=== PATIENT | female | born 1945 | race Caucasian/White ===

== ENCOUNTER 2017-01-06 14:20 | Outpatient (CLI) | payer OTHER, MEDICARE ==
[~2017-01-06 14:20] MED LIST: ASA81 PO; CELE200C PO; CLOP75TA2 PO; NIAC1000 PO; PROP10TA10 PO; SIMV20TA2 PO; [UNRECOGNIZED DRUG - CODE] PO
== END 2017-01-06 19:48 | disposition home or self-care (01) ==
LOC: SMA 14:20
PROVIDERS: ATTEND Specialist
DX: Z12.31 Encounter for screening mammogram for malignant neoplasm of breast (principal)
CPT/HCPCS: G0202

== ENCOUNTER 2017-02-18 19:15 | Emergency (ER) | payer OTHER, MEDICARE ==
[~2017-02-18] VITALS: Ht 165.1 cm; Wt 80.7 kg
[2017-02-18 19:25] VITALS: BP_SYST 153
[2017-02-18] MEDS ORDERED: BACITRACIN 1 GM OINT TP ONE (22:15)
[2017-02-18] MEDS ORDERED: DIPH-TET-PERTUS Vaccine 0.5 ML VIAL (ADACEL) IM ONE (22:15)
[2017-02-18] MEDS ORDERED: LIDOCAINE 1% 10 MG/ML, 20 ML MDV IJ ONE (22:15)
[2017-02-18] MEDS ORDERED: CIPROFLOXACIN HCL 500 MG TABLET PO ONE (23:15)
[2017-02-18] MEDS ORDERED: CLINDAMYCIN HCL 150 MG CAPSULE PO ONE (23:15)
[2017-02-18 23:44] VITALS: BP_SYST 138
== END 2017-02-18 23:44 | disposition home or self-care (01) ==
LOC: SED 19:15
DX: S61.512A Laceration without foreign body of left wrist, initial encounter (principal); S51.051A Open bite, right elbow, initial encounter; Z88.0 Allergy status to penicillin; Z79.82 Long term (current) use of aspirin; Z79.899 Other long term (current) drug therapy; W54.0XXA Bitten by dog, initial encounter; Y93.01 Activity, walking, marching and hiking; Y92.098 Other place in other non-institutional residence as the place of occurrence of the external cause; Y99.8 Other external cause status
CPT/HCPCS: 12002; 73110; 90471; 90715; 99284; J2001

== ENCOUNTER 2018-12-04 12:45 | Outpatient (CLI) | payer OTHER, MEDICARE | END 2018-12-04 21:06 | disposition home or self-care (01) | LOC: SMA 12:45 | DX: Z12.31 Encounter for screening mammogram for malignant neoplasm of breast (principal) | CPT/HCPCS: 77067 ==

== ENCOUNTER 2020-04-07 12:16 | Outpatient (CLI) | payer OTHER, MEDICARE | END 2020-04-07 20:30 | disposition home or self-care (01) | LOC: SMA 12:16 | PROVIDERS: ATTEND Family Medicine | DX: Z12.31 Encounter for screening mammogram for malignant neoplasm of breast (principal) | CPT/HCPCS: 77067 ==

== ENCOUNTER 2020-09-07 17:57 | Emergency (ER) | payer OTHER, MEDICARE ==
[~2020-09-07] VITALS: Ht 165.1 cm; Wt 81.6 kg
[2020-09-07 18:03] VITALS: BP_SYST 157
--- NOTE | 2020-09-07 18:20 | NUR ---
RECEIVED AND IN ROOM, CALM, ALERT, RESP UNLABORED, SKIN WARM AND DRY. NO DISTRESS. STEADY GAIT, HERE FOR C/O ABD PAIN LLQ. DENIES FEVER/CHILLS, N,V DENIES CP/SOB
--- NOTE | 2020-09-07 18:29 | NUR ---
DR MATTSON IN TO ASSESS
[2020-09-07 18:43] LABS: BILIRUBIN,URINE NEGATIVE (NEGATIVE); BLOOD, URINE NEGATIVE (NEGATIVE); CLARITY/URINE CLEAR (CLEAR); COLOR,URINE YELLOW (YELLOW); GLUCOSE,URINE NEGATIVE (NEGATIVE); KETONES,URINE NEGATIVE (NEGATIVE); LEUKOCYTE ESTERASE ,URINE NEGATIVE (NEGATIVE); NITRITE, URINE NEGATIVE (NEGATIVE); PROTEIN URINE NEGATIVE (NEGATIVE); UROBILINOGEN,URINE 0.2 (0.2-1.0)
[2020-09-07 18:54] LABS: BASOPHILS % (AUTO) 0.3 % (0.0-2.0); EOSINOPHILS # (AUTO) 0.2 K/uL (0.0-0.4); EOSINOPHILS % (AUTO) 2.4 % (0.0-4.0); HEMATOCRIT 41.1 % (36-48); HEMOGLOBIN 13.9 g/dL (12.0-16.0); LYMPHOCYTES # (AUTO) 1.7 K/uL (1.0-5.5); LYMPHOCYTES % (AUTO) 16.7 % (20.5-51.5); MEAN CORPUSCULAR HEMOGLOBIN 30 pg (27-31); MEAN CORPUSCULAR HGB CONC 34 % (32-36); MEAN CORPUSCULAR VOLUME 89 fL (79.0-98.0); MONOCYTES # (AUTO) 0.8 K/uL (0.0-1.0); MONOCYTES % (AUTO) 8.3 % (1.7-9.3); NEUTROPHILS # (AUTO) 7.3 K/uL (1.8-7.7); NEUTROPHILS % (AUTO) 72.3 % (40.0-70.0); PLATELET COUNT (AUTO) 182 K/uL (130-430); RED BLOOD CELL COUNT(AUTO) 4.64 MIL/uL (4.2-6.2); RED CELL DISTRIBUTION WIDTH 14.2 % (9.0-15.0); WHITE BLOOD COUNT (AUTO) 10.1 K/uL (4.8-10.8)
[2020-09-07 19:00] LABS: ANION GAP 7 (5-15); CALCIUM 9.2 mg/dL (8.4-11.0); CHLORIDE 105 mmol/L (98-107); CREATININE 1.24 mg/dL (0.55-1.30); GLUCOSE 99 mg/dL (70-99); POTASSIUM 4.4 mmol/L (3.5-5.1); SODIUM SERUM 138 mmol/L (136-145); UREA NITROGEN, BLOOD 19 mg/dL (8-21)
[2020-09-07 19:06] LABS: ALANINE AMINOTRANSFERASE 28 U/L (12-78); ALBUMIN 3.6 g/dL (3.4-4.8); ASPARTATE AMINOTRANSFERASE 21 U/L (10-37); TOTAL BILIRUBIN 0.6 mg/dL (0.0-1.0)
--- NOTE | 2020-09-07 19:09 | NUR ---
OFF TO CT ABD/PELVIS, CALM, ALERT, RESP UNLABORED, NO DISTRESS
[2020-09-07] MEDS ORDERED: HYDR-3917 PO (19:59)
--- NOTE | 2020-09-07 19:59 | NUR ---
DR MATTSON IN TO REASSESS
[2020-09-07] MEDS ORDERED: HYDR-4272 PO ×2 (20:01→20:03)
--- NOTE | 2020-09-07 20:15 | NUR ---
Patient given written and verbal discharge instructions and verbalizes understanding. ER MD discussed with patient the results and treatment provided. Patient in stable condition. ID arm band removed. Rx of NORCO given. Patient educated on pain management and to follow up with PMD. Pain Scale 2/10 Opportunity for questions provided and answered. Medication side effect fact sheet provided.
[2020-09-07 20:28] VITALS: BP_SYST 141
== END 2020-09-07 20:28 | disposition home or self-care (01) ==
LOC: SED 17:57
DX: N23 Unspecified renal colic (principal); K57.92 Diverticulitis of intestine, part unspecified, without perforation or abscess without bleeding
CPT/HCPCS: 36415; 76376; 80053; 81003; 85025; 99284